=== PATIENT | female | born 1965 | race Caucasian/White ===

== ENCOUNTER 2025-05-09 18:08 | Emergency (ER) | payer BC, SELFPAY ==
[2025-05-09 18:14] VITALS: BP 128/73
--- NOTE | 2025-05-09 19:02 | ED.GENMED ---
History of Present Illness
General
Chief Complaint: Musculo-Skeletal Complaint
Source: patient
Exam Limitations: none
Time Seen by Provider: 05/09/25 18:45
Nursing documentation reviewed up to this point in time: agreed with
History of Present Illness
History of Present Illness:
59-year-old female who presents to the emergency department for evaluation of left leg pain. Patient states about an hour prior to arrival she was chasing her cat and jumped over a fence and felt severe pain in her left lower leg upon landing. The
description of the pain is somewhat vague however she points to mainly the anterior aspect of the left lower leg. She describes sharp, stabbing pain with ambulation and has been unable to bear weight since injury. She denies any numbness/tingling
in her left lower extremity.
She denies any pain in her foot or hip. She did not hit her head or lose consciousness. No other injuries sustained.
Review of Systems
Review of Systems
Allergies reviewed?: Yes
All Other Systems: ROS reviewed and negative except as documented in HPI and ROS
Phy Exam
Physical Exam
Physical Exam:
Vitals: Patient's vital signs are stable. Afebrile
General: Patient is well appearing, no acute distress
Skin: Warm and dry, no rashes or lesions. No ecchymoses
Head: Normocephalic, atraumatic
Neck: Normal ROM, no cervical spine tenderness
Extremities: No obvious deformity or hematoma of left lower extremity. Tenderness along lateral aspect of left lower leg. No bony tenderness of left ankle, left foot. Small effusion of left knee. No tenderness of left hip. Achilles intact and
nontender. Patient has limited range of motion in left ankle and knee secondary to pain. 2+ palpable left DP, PT pulse. Sensation intact. Capillary refill WNL.
Neuro: Grossly intact
Psychiatric: Normal affect.
Course
Orders/Labs/Results
Orders:
Orders
05/09/25 18:13
CR Leg Tibia/fibula Left 2 Vw Urgent
Comment:
Reason For Exam: injury
05/09/25 18:52
Ibuprofen [Motrin] 600 mg PO NOW STA
Knee, Left 4 or More Views [CR Knee - Left 4 Or More View*] Urgent
Comment:
Reason For Exam: Left knee pain/ swelling after fall
05/09/25 20:18
Crutches-Treatment ONCE
Knee Immobilizer Left-Treatmen ONCE
Vital Signs
Initial and Last Documented VS:
Initial Vital Signs
Temp Pulse Resp Pulse Ox
98.0 F 74 20 98
05/09/25 18:11 05/09/25 18:11 05/09/25 18:11 05/09/25 18:11
Last Documented Vital Signs
Temp Pulse Resp BP Pulse Ox
98.0 F 74 20 128/73 98
05/09/25 18:11 05/09/25 18:11 05/09/25 18:11 05/09/25 18:14 05/09/25 19:08
MDM/Problems Addressed
Differential Diagnosis Includes:
Not limited to: Fibula fracture, hematoma, gastrocnemius tear, muscular strain, Achilles tendon rupture, etc.
MDM/Problems Addressed:
59-year-old female presenting after mechanical fall today with left lower leg pain. Unable to bear weight secondary to pain. No associated head strike or other injuries. Patient has stable vital signs on arrival. Physical exam as above. Will
give Motrin, ice, check x-ray left knee and left tibia/fibula.
Update: X-ray of left knee and left tibia/fibula obtained which reveals a nondisplaced intra-articular tibial plateau fracture. Case discussed with orthopedics. Patient placed in knee immobilizer and provided crutches�advised to remain
nonweightbearing and follow-up with orthopedics for further management. Return precautions discussed. Patient stable for discharge home.
Chronic conditions affecting care:
N/A
Acute Exacerbation and/or Progression of Chronic Illness:
N/A
*Radiology
Radiology exam reviewed: radiology read reviewed
*Pulse Oximetry
SaO2: 98
Oxygen Mode of Delivery: Room air
Patient hypoxic: no
*EKG
Interpreted by ED Provider?: NA
*Broaching Machine Repairer Interpretation
Rate: Broaching Machine Repairer- N/A
*Critical Care Note
Total Time (30-74mins, 75-104mins- exclusive of procedures): Not Applicable
Patient Management
Discussion with other providers: [employer] (Case discussed with orthopedics)
ED Attending Note
-
Portions of this chart may have been created with voice recognition software.� Occasional wrong word or��sound alike� substitutions may have occurred due to the inherent limitations of voice recognition software.
Discharge Plan
Departure
Patient Disposition: Home (Routine Discharge)
Date of Disposition: 05/09/25
Time of Disposition: 20:18
Patient with high blood pressure during this ER visit?: No
Condition: Good
Discharge Problem:
Fracture of left tibial plateau
Instructions: How to Use Crutches, Knee Immobilizer (DC), Lower Leg Fracture ED
Referrals:
Kyree Miles MD [Active, Orthopedics] - Next open appointment
NONE,* [Family Provider, Internal Medicine]
Shaquille Mancia MD [Active, Orthopedics] - Next open appointment
Activity Restrictions/Additional Instructions:
RETURN TO THE EMERGENCY DEPARTMENT WITH ANY INTRACTABLE PAIN IN THE LOWER LEG, SIGNIFICANT SWELLING, NUMBNESS/TINGLING IN LEFT LEG OR FOOT, WORSENING IN CURRENT SYMPTOMS, OR ANY OTHER CONCERNS
- As discussed�your x-ray showed a fracture of your left tibial plateau. You should keep your leg in a knee immobilizer and remain nonweightbearing with crutches until you are seen by orthopedics. Continue to ice and elevate your left leg often
over the next 2 days. Take Tylenol and/or Motrin as needed for pain.
- Follow-up with orthopedics for further evaluation/management. Their contact information is above.
Monitor your symptoms closely and return to the emergency department with any acute worsening/new symptoms or any other concerns
Interventions
Interventions:
*Risk Screen - Suicide Last Done: 05/09/25 21:07
*General Assessment Last Done: 05/09/25 18:11
*Neglect/Abuse Screening Last Done: 05/09/25 21:07
*ED- Fall Risk Assessment Last Done: 05/09/25 19:08
*ED COVID-19 Vaccine History Last Done: 05/09/25 19:08
*Nursing Disposition Last Done: 05/09/25 21:07
ED-Musculoskeletal Assessment Last Done: 05/09/25 19:08
Discharge Date and Time
Discharge Date/Time: 05/09/25 21:10
Print Language: INDIAN
[2025-05-09] MEDS: MOTRIN 600 MG PO (19:05)
== END 2025-05-09 21:10 | disposition home or self-care (01) ==
LOC: EMR 18:08
PROVIDERS: EMERGENCY PHYSICIAN Emergency Medicine
DX: S82.142A Displaced bicondylar fracture of left tibia, initial encounter for closed fracture (principal); X58.XXXA Exposure to other specified factors, initial encounter; Y93.39 Activity, other involving climbing, rappelling and jumping off
CPT/HCPCS: 29505; 99283; 73564; 73590